=== PATIENT | male | born 1970 | race Caucasian/White ===

== ENCOUNTER 2018-09-15 16:06 | Inpatient (IN) | payer BC ==
[~2018-09-15 16:06] MED LIST: CEFAZOLIN 1 GM INJ; DESFLURANE 15 MIN
[2018-09-15 16:38] LABS: ADD MAN DIFF? NO
[2018-09-15 16:39] LABS: WHITE BLOOD COUNT 5.2 10^3/ul (4.8-10.8)
[2018-09-15 16:39] LABS: BASOPHILS % 0.6 % (0.0-2.0); EOSINOPHILS # 0.1 10^3/ul (0.0-0.5); HEMATOCRIT 41.7 % (42.0-52.0); HEMOGLOBIN 12.9 g/dl (14.0-18.0); LYMPHOCYTES # 1.4 10^3/ul (0.8-2.9); LYMPHOCYTES % 27.6 % (15.0-51.0); MEAN CORPUSCULAR HEMOGLOBIN 24.9 pg (29.0-33.0); MEAN CORPUSCULAR HGB CONC 30.9 g/dl (32.0-37.0); MEAN CORPUSCULAR VOLUME 80.5 fl (82.0-101.0); MEAN PLATELET VOLUME 11.3 fl (7.4-10.4); MONOCYTE # 0.4 10^3/ul (0.3-0.9); MONOCYTES % 7.9 % (0.0-11.0); NEUTROPHIL # 3.2 10^3/ul (1.6-7.5); NEUTROPHILS % 62.5 % (39.0-77.0); PLATELET COUNT 211 10^3/UL (140-415); RED BLOOD COUNT 5.18 10^6/ul (4.70-6.10); RED CELL DISTRIBUTION WIDTH 18.3 % (11.5-14.5)
[2018-09-15] MEDS: SOD CHLORIDE 0.9% 1,000 ML IV (16:42)
[2018-09-15] MEDS: KETOROLAC 15 MG INJ IV (16:43)
[2018-09-15] MEDS: ONDANSETRON 4 MG INJ IV ×2 (16:43→20:41)
[2018-09-15 16:56] LABS: INR 0.96; PROTIME 12.9 Sec (11.9-14.9)
[2018-09-15 16:57] LABS: PARTIAL THROMBOPLASTIN TIME 29.1 Sec (23.0-35.0)
[2018-09-15 17:10] LABS: ALANINE AMINOTRANSFERASE 19 IU/L (13-69); ALBUMIN 4.6 g/dl (3.3-4.9); ALBUMIN/GLOBULIN RATIO 1.24; ALKALINE PHOSPHATASE 89 IU/L (42-121); ANION GAP 7 (5-13); ASPARTATE AMINO TRANSFERASE 23 IU/L (15-46); BILIRUBIN,INDIRECT 0.1 mg/dl (0-1.1); BILIRUBIN,TOTAL 0.1 mg/dl (0.2-1.3); BLOOD UREA NITROGEN 16 mg/dl (7-20); CALCIUM 9.7 mg/dl (8.4-10.2); CARBON DIOXIDE 29 mmol/L (21-31); CHLORIDE 103 mmol/L (97-110); CREATININE 0.87 mg/dl (0.61-1.24); Estimated GFR > 60 mL/min (>60); GLUCOSE 90 mg/dl (70-220); LIPASE 83 U/L (23-300); POTASSIUM 3.8 mmol/L (3.5-5.1); SODIUM 139 mmol/L (135-144); TOTAL PROTEIN 8.3 g/dl (6.1-8.1)
[2018-09-15] MEDS ORDERED: morphine 4 MG/ML VIAL IV ×2 (18:09→19:30)
[2018-09-15] MEDS ORDERED: SOD CHLORIDE 0.9% 1,000 ML IV (18:30)
[2018-09-15] MEDS ORDERED: PIPER-TAZO 3.375 GM IV (PMX) 100 ML IVPB (18:30)
[2018-09-15] MEDS ORDERED: MIDAZOLAM 1 MG/ML 2 ML INJ (19:17)
[2018-09-15] MEDS ORDERED: SUCCINYLCHOLINE CHLORIDE 100 MG/5 ML SYG IV (19:17)
[2018-09-15] MEDS ORDERED: FENTAnyl 50 MCG/ML VIAL (19:17)
[2018-09-15] MEDS ORDERED: PROPOFOL 20 ML (19:17)
[2018-09-15] MEDS ORDERED: ROCURONIUM 50 MG INJ (19:17)
[2018-09-15] MEDS ORDERED: LIDOCAINE 2% (SDV) 5 ML INJ (19:17)
[2018-09-15] MEDS ORDERED: ROPIVACAINE 0.2% 20 ML VIAL (19:19)
[2018-09-15] MEDS ORDERED: ACETAMINOPHEN 325 MG TAB PO ×2 (19:30→21:30)
[2018-09-15] MEDS ORDERED: IBUPROFEN 600 MG TAB PO (19:30)
[2018-09-15] MEDS ORDERED: HYDROmorphONE 1 MG/5 ML IV SYRINGE IV (19:30)
[2018-09-15] MEDS ORDERED: ONDANSETRON 4 MG INJ (19:48)
[2018-09-15] MEDS ORDERED: GLYCOPYRROLATE 0.4 MG INJ (20:16)
[2018-09-15] MEDS ORDERED: NEOSTIGMINE 3 MG/3 ML SYRINGE (20:16)
[2018-09-15] MEDS: HYDROmorphONE 1 MG/5 ML IV SYRINGE IV ×2 (20:40→21:01)
[2018-09-15] MEDS: OXYCODONE/ACETAMINOPHEN (5/325) TAB PO (20:41)
[2018-09-15] MEDS: MEPERIDINE 25 MG INJ IV (20:54)
[2018-09-15] MEDS ORDERED: DOCUSATE SODIUM 100 MG CAP PO (21:30)
[2018-09-15] MEDS ORDERED: ONDANSETRON 4 MG INJ IV (21:30)
[2018-09-15] MEDS ORDERED: BISACODYL (EC) 5 MG TAB PO (21:30)
[2018-09-15] MEDS ORDERED: NACL 0.9% 3 ML SYG IV (21:30)
[2018-09-15] MEDS ORDERED: HYDROCODONE/APAP (5/325) TAB PO (21:30)
[2018-09-15] MEDS: morphine 2 MG INJ IV (22:40)
[2018-09-16] MEDS: D5-NS + KCL 20 MEQ 1,000 ML IV ×3 (00:18→15:03)
[2018-09-16] MEDS: PIPER-TAZO 3.375 GM IV (PMX) 100 ML IVPB ×4 (00:19→17:40)
[2018-09-16] MEDS: morphine 2 MG INJ IV (03:07)
[2018-09-16] MEDS: ONDANSETRON 4 MG INJ IV (03:07)
[2018-09-16] MEDS: ENOXAPARIN 40 MG/0.4 ML SYG SC (06:19)
[2018-09-16 06:20] LABS: ADD MAN DIFF? NO
[2018-09-16 06:38] LABS: WHITE BLOOD COUNT 14.3 10^3/ul (4.8-10.8)
[2018-09-16 06:38] LABS: BASOPHILS % 0.3 % (0.0-2.0); HEMATOCRIT 41.1 % (42.0-52.0); HEMOGLOBIN 12.6 g/dl (14.0-18.0); LYMPHOCYTES # 1.4 10^3/ul (0.8-2.9); LYMPHOCYTES % 9.4 % (15.0-51.0); MEAN CORPUSCULAR HEMOGLOBIN 25.4 pg (29.0-33.0); MEAN CORPUSCULAR HGB CONC 30.7 g/dl (32.0-37.0); MEAN CORPUSCULAR VOLUME 82.7 fl (82.0-101.0); MEAN PLATELET VOLUME 11.6 fl (7.4-10.4); MONOCYTE # 0.6 10^3/ul (0.3-0.9); MONOCYTES % 4.2 % (0.0-11.0); NEUTROPHIL # 12.2 10^3/ul (1.6-7.5); NEUTROPHILS % 85.3 % (39.0-77.0); PLATELET COUNT 246 10^3/UL (140-415); RED BLOOD COUNT 4.97 10^6/ul (4.70-6.10); RED CELL DISTRIBUTION WIDTH 18.2 % (11.5-14.5)
[2018-09-16 06:53] LABS: ALANINE AMINOTRANSFERASE 13 IU/L (13-69); ALBUMIN 4.5 g/dl (3.3-4.9); ALBUMIN/GLOBULIN RATIO 1.21; ALKALINE PHOSPHATASE 89 IU/L (42-121); ANION GAP 12 (5-13); ASPARTATE AMINO TRANSFERASE 28 IU/L (15-46); BILIRUBIN,INDIRECT 0.6 mg/dl (0-1.1); BILIRUBIN,TOTAL 0.6 mg/dl (0.2-1.3); BLOOD UREA NITROGEN 8 mg/dl (7-20); CALCIUM 9.7 mg/dl (8.4-10.2); CARBON DIOXIDE 27 mmol/L (21-31); CHLORIDE 100 mmol/L (97-110); CREATININE 0.77 mg/dl (0.61-1.24); Estimated GFR > 60 mL/min (>60); GLUCOSE 128 mg/dl (70-220); POTASSIUM 5.1 mmol/L (3.5-5.1); SODIUM 139 mmol/L (135-144); TOTAL PROTEIN 8.2 g/dl (6.1-8.1)
[2018-09-16] MEDS: BACLOFEN 10 MG TAB PO (08:41)
[2018-09-16 12:57] LABS: IRON 125 ug/dl (35-150)
[2018-09-16 13:06] LABS: % IRON SATURATION 40 % SAT (22-52); TOTAL IRON BINDING CAPACITY 316 ug/dl (241-421)
[2018-09-16 13:33] LABS: FERRITIN 15.4 ng/ml (11.1-264.0)
== END 2018-09-16 19:25 | disposition home or self-care (01) | DRG 343 ==
LOC: E/R 16:06 → REC 18:42 → 2NE 22:10
PROC: 0DTJ4ZZ Resection of Appendix, Percutaneous Endoscopic Approach (ICD-10-PCS; principal; 2018-09-15 19:22)
DX: K35.80 Unspecified acute appendicitis (principal); D64.9 Anemia, unspecified; F32.9 Major depressive disorder, single episode, unspecified; M54.5 Low back pain; F41.9 Anxiety disorder, unspecified; F17.210 Nicotine dependence, cigarettes, uncomplicated
CPT/HCPCS: 36415; 74176; 80053; 82728; 83540; 83690; 83735; 85025; 85610; 85730; 88304; 96374; 96375; 99285-25